=== PATIENT | female | born 1955 | race Caucasian/White ===

== ENCOUNTER 2018-10-16 13:30 | Outpatient (AMBR) | payer MEDICAID, SELFPAY ==
--- NOTE | 2018-10-15 13:19 | PT.OIERPT ---
PT OP Initial Eval Patient Information Visit Reasons: left knee arthroscopy Medical Diagnosis: S83.28 M65.9 M23.92 S83.24 Treatment Dx #1: L knee pain Treatment Dx #2: s/p L knee A/S Start of Care: 10/15/18 Date of Onset: 09/14/18 Initial Assessment Subjective Pt is 63 yr old female s/p L knee A/S about 4 weeks ago. She is ambulating without assistive device and is walking around her mobile [place] park without pain. Only when she climbs stairs she feels pain and she has 5 stairs to get into mobile home. She had been working at [employer] but is off work now. PMH: allergies, HTN, CTS B, hysterectomy, skin CA excision Imaging: MRI in Em[facility], reviewed Pt goal: not sure, it only hurts when I climb stairs Objective L knee AROM: Flexion: 122 deg Extension: -10 deg PROM: WNL SLR: 45 deg flexion limited by LBP Strength: L quads 4-/5 limited by patella compression pain, hamstrings 4-/5 Antalgic gait pattern with decreased stance time on L Gait: lacks knee extension Assessment Pt presentation consistent with post op L knee A/S with decreased ROM into extension, strength and WB tolerance. Pt ambulates with decreased WB on L. Pt has pain at first resistance into knee flexion that limits end-range assessment and PROM. Gait is limited by lack of extension ROM. Pt has good rehab potential with attainable functional improvement. Eval followed by HEP with materials. Short Term and [facility] Goals 1. Independent with HEP 2. Improved knee extension ROM to full 3. Improved quad and hamstring strength to 4+/5 4. Improved ambulatory tolerance to community distances with symmetrical gait pattern. Treatment Plan 1. Manual therapy 2. Therex 3. Modalities as indicated, estim, MHP, ice Frequency and Duration 2x a week for 8 weeks Certification Dates: 10/15/18 to 01/15/19 Office Procedures PT Procedures PT Date of Service: 10/15/18 OP PT Eval Mod Complex 30 minutes: Yes
--- NOTE | 2018-10-16 14:32 | PT.ODAYNRPT ---
PT Outpatient Daily Note Date of Service: October 16, 2018 OP Daily Note Visit Reasons: left knee arthroscopy Outpatient Physical Therapy Treatment Date: 10/16/18 Subjective: Same as time of eval Objective: See F/S for therex MT: PPM into knee extension, STM anterior knee x10' Assessment: Pain limits extension ROM and LBP limits SLR and transitional movements. Plan: Request additional visits in order to continue therapy 2x a week for 8 weeks Length of Time (minutes) of Treatment: 30 Minutes Office Procedures PT Procedures PT Date of Service: 10/15/18 OP PT Eval Mod Complex 30 minutes: Yes PT Procedures PT Date of Service: 10/16/18 Therapeutic Exercise 15 minutes: Yes Manual Vessel Manager 15 minutes: Yes
== END 2018-11-14 23:59 | disposition home or self-care (01) ==
PROVIDERS: PCP Physician Assistant; Referring Provider Physician Assistant; Visit Provider Orthopaedic Surgery
DX: M25.562 Pain in left knee (principal)
CPT/HCPCS: 97110; 97140; 97162

== ENCOUNTER 2020-10-13 10:25 | Outpatient (AMBR) | payer MEDICARE, MEDICAID, SELFPAY ==
--- NOTE | 2020-09-16 10:15 | PTNOTE_ITS ---
PT OP Initial Eval Patient Information Visit Reasons: LUMBAR Medical Diagnosis: M54.16 Treatment Dx #1: LBP Start of Care: 09/16/20 Date of Onset: 4 months ago Initial Assessment Subjective Pt is 65 yr old female presents to therapy ambulating slowly with cane and fwd flexed trunk who reports chronic LBP and worsening of LBP over the past 4 months that has made it more difficult to walk. She lives alone and she needs help with all ADL's because of the R knee that is getting replaced this Monday. She lives in a mobile home and her sister dumps the trash but pt can dress, groom, bathe and eats TV dinner and bologna sandwiches. PLOF: she could walk to the dumpster and back without resting and now she has to rest at the dumpster for about 5 minutes before walking back. PMH: Hysterectomy, allergies, OA R knee, skin cancer x3, L TKA Imaging: MRI of L/S in EMR reveals Grade 1 anterolisthesis, 4 mm, L4 on L5, Moderate disc narrowing L4-L5. Pt goal: to walk further Objective Trunk ArOM: B SB 10% with pain to the R Extension: to neutral with pain around L5-S1 centrally Flexion: 7 from floor with LBP and one hand on table to support balance B rotation: 20% LE strength: B hamstrings: 3/5 Quads 3/5 Hip abd/add 4-/5 TTP: moderate L5-S1, PSIS on R lumbar paraspinal atrophy Assessment Pt presents with very limited trunk ROM and extension sensitivity and overlying myofascial pain around L5-S1 on R side. She has lumbar extensor atrophy and pain with prolonged standing. LE strength is weak. These findings are consistent with MRI that shows anterolisthesis L4 on L5 and disc bulges at L4-5 and L5-S1. Pt requires skilled therapy in order to decrease pain and improve standing tolerance and has poor/fair rehab potential to meet goals. Short Term and [employer] Goals 1. Ind with HEP 2. Improved standing tolerance to 20 minutes with <=4/10 LBP 3. Pt will improve ambulatory distance to the dumpster and back without resting 4. Improved trunk rotation to at least 40% of normal B Treatment Plan Pt has R TKA surgery planned in two days and will be in the hospital and then recovering from that. She will call after sx when she can walk enough to come in for therapy on her back. She isn't sure if MD will refer her for therapy on her knee. 90 day POC since she may need extra time after knee surgery. Pt requires skilled therapy in order to increase strength, decrease pain and address aforementioned impairments. Rx may consist of Therex, Manual therapy, Neuromuscular re- education, Gait training. Modalities as indicated-moist heat packs, ice packs, mechanical traction, estim Frequency and Duration 1-2x a week for 4 weeks Certification Dates: 09/16/20 to 12/17/20 Office Procedures PT Procedures PT Date of Service: 09/16/20 OP PT Eval High Complex 45 minutes: Yes
--- NOTE | 2020-10-07 16:49 | PTNOTE_ITS ---
PT Outpatient Daily Note Date of Service: 10/07/20 OP Daily Note Visit Reasons: LUMBAR Outpatient Physical Therapy Treatment Date: 10/07/20 Subjective: Pt had R TKA about 3 weeks ago and wonders if that will limit ther apy on her back. Objective: See f/S for therex MT: STM L/s paraspinals L4-5, L5-S1 with Graston x10' Mechanical traction x7' at 40 lbs Assessment: Good response to manual therapy and traction to reduce pain with transitional movements such as supine to sit transfers. Plan: Continue per POC Length of Time (minutes) of Treatment: 30 Minutes Office Procedures PT Procedures PT Date of Service: 09/16/20 OP PT Eval High Complex 45 minutes: Yes PT Procedures PT Date of Service: 10/07/20 Therapeutic Exercise 15 minutes: Yes Manual Home Service Technician 15 minutes: Yes
--- NOTE | 2020-10-13 19:12 | PT.ODS1RPT ---
PT OP Progress/Discharge Note Date of Service: 10/13/20 Progress Note/DC Note Progress Note/Discharge Note: DC Note Patient Information Visit Reasons: LUMBAR Treatment Dx #1: LBP Service Continue Service or Discharge: Discharge Discharge Date: 10/13/20 Certification Date Certification Dates: 09/16/20 to 12/17/20 Status Subjective: The LB feels about the same after last visit but the R knee hurts after TKA Objective: Mechanical traction x10' at 40 lbs Objective findings same as evaluation Assessment: Pt has attended the eval and 2 Rx visits and treatment intervention options are limited by R TKA. She hasn't noticed any difference in lumbar ssx and would benefit from therapy on her R knee s/p TKA before trying to rehab her back. She is not making progress with therapy goals. Plan: D/C with HEP. Goals Achieved: Office Procedures PT Procedures PT Date of Service: 10/13/20 Traction Mechanical: Yes Therapeutic Exercise 15 minutes: Yes PT Procedures PT Date of Service: 09/16/20 OP PT Bernard High Complex 45 minutes: Yes PT Procedures PT Date of Service: 10/07/20 Therapeutic Exercise 15 minutes: Yes Manual Merchandise Presentation Associate 15 minutes: Yes
== END 2020-10-14 23:59 | disposition home or self-care (01) ==
PROVIDERS: PCP Physical Medicine & Rehabilitation Pain Medicine; Referring Provider Physical Medicine & Rehabilitation Pain Medicine; Visit Provider Physical Medicine & Rehabilitation Pain Medicine
DX: M54.16 Radiculopathy, lumbar region (principal); M54.5 Low back pain; R26.2 Difficulty in walking, not elsewhere classified
CPT/HCPCS: 97012; 97110; 97140; 97163

== ENCOUNTER 2021-03-03 09:52 | Outpatient (AMBR) | payer MEDICARE, MEDICAID, SELFPAY ==
--- NOTE | 2021-02-16 11:17 | PTNOTE_ITS ---
PT OP Initial Eval Patient Information Visit Reasons: right knee Medical Diagnosis: M17.11 Treatment Dx #1: s/p R TKA Start of Care: 02/16/21 Date of Onset: 09/18/20 Initial Assessment Subjective Pt is 66 yr old female s/p R TKA about 4 months ago presents to therapy ambulating with SPC slowly. She can ambulate limited distances less than one block with cane. It was healing perfectly until I felt a pop with pain and swelling and now everything makes it hurt more. The knee freezes and locks and then it won't hold her weight. PLOF: prior to onset of R knee OA she was independent with community mobility not limited by pain. PMH: HTN, allergies Imaging: in EMR Pt goal: to walk without pain and not fall Objective R knee ArOM: Flexion: 61 deg Extension: -34 deg Strength: 3-/5 Gait: antalgic TTP: moderate over lateral femoral condyle protrusion. Varus/valgus stress test: pain Assessment Pt presents with very limited R knee ROM, capsular tightness, antalgic gait, high tissue irritability and a protrusion around lateral femoral condyle. Pt requires skilled therapy to improve knee ROM and has poor/fair rehab potential, potentially limited by protrusion, knee instability and pain. Short Term and Integrated Logistics Support Manager Goals 1. Ind with HEP 2. Improved knee ROM to at least -10 deg extension to 90 deg flexion 3. Improved gait pattern to symmetrical for at least 1 block. Treatment Plan 90 day POC in order to complete visits. Pt requires skilled therapy in order to increase strength, decrease pain and address aforementioned impairments. Rx may consist of Therex, Manual therapy, Neuromuscular re-education, Gait training. Modalities as indicated-moist heat packs, ice packs, mechanical traction, estim Frequency and Duration 2x a week for 6 weeks Certification Dates: 02/16/21 to 05/17/21 Office Procedures PT Treatments PT Date of Service: 02/16/21 OP PT Eval Mod Complex 30 minutes: Yes
--- NOTE | 2021-02-18 09:09 | PTNOTE_ITS ---
PT Outpatient Daily Note Date of Service: 02/18/2021 OP Daily Note Visit Reasons: right knee Outpatient Physical Therapy Treatment Date: 02/18/21 Subjective: Pt reports she had a rough night and reports pain level 12/10 today. Objective: See flow chart for therex. MT: STM w/ graston R knee x 10mins. Assessment: Pt presents with slow antalgic gait using SPC to therapy prior and end of session. Pt presents a protrustion and numbness to lateral R knee. Pt had good response to HMP. Pt tolerated quad sets fair w/ complaints of mod pain. Cued her to push down with light pressure and pain remained. Pt has very limited ROM to knee in flexion and extension. Plan: Cont POC per PT. Length of Time (minutes) of Treatment: 30 Minutes Office Procedures PT Treatments PT Date of Service: 02/16/21 OP PT Eval Mod Complex 30 minutes: Yes PT Treatments PT Date of Service: 02/18/21 Therapeutic Exercise 15 minutes: Yes Manual President Celebrity Acquistion 15 minutes: Yes
--- NOTE | 2021-02-23 14:16 | PTNOTE_ITS ---
PT Outpatient Daily Note Date of Service: 02/23/21 OP Daily Note Visit Reasons: right knee Outpatient Physical Therapy Treatment Date: 02/23/21 Subjective: Continued knee pain and it feels like it moves or shifts. Objective: See F/S for therex MT: StM anterior knee with Graston with knee PPM into flexion 15 sec holds x10' total Assessment: The knee shifts from varus to valgus with little effort with knee extended consistent with instability of prosthesis. Pain limits ROM and WB tolerance on that side. PT recommends further workup to assess dynamic instability of prosthesis. Plan: Continue per POC Office Procedures PT Treatments PT Date of Service: 02/16/21 OP PT Eval Mod Complex 30 minutes: Yes PT Treatments PT Date of Service: 02/18/21 Therapeutic Exercise 15 minutes: Yes Manual Head Of Commission Department 15 minutes: Yes PT Treatments PT Date of Service: 02/23/21 Therapeutic Exercise 15 minutes: Yes Manual Head Of Commission Department 15 minutes: Yes
--- NOTE | 2021-03-03 09:44 | PT.ODS1RPT ---
PT OP Progress/Discharge Note Date of Service: 03/03/21 Progress Note/DC Note Progress Note/Discharge Note: DC Note Patient Information Visit Reasons: right knee Service Continue Service or Discharge: Discharge Discharge Date: 03/03/21 Status Subjective: Continued high pain level in R knee that makes it difficult to walk and move the knee and it feels like it shifts . Pt has high pain level and any movement including therapy increases her pain. She didn't want to do exercises today beside the hot pack and the extension stretching. Objective: Same as time of evaluation Flexion: 61 deg Extension: -34 deg Strength: 3-/5 Varus stress: positive Assessment: Pt has attended the eval and 3 Rx sessions with limited progress due to continued high tissue irritability that limits R knee ROM and function with gait. Pt has protrusion/effusion of the lateral knee that may be from ligamentous dysfunction since she has positive varus gapping and feels like the knee is shifting with gait. 15 minute Rx today limited by her not wanting to do therex. Plan: Pt is discharged to provider for further workup Office Procedures PT Treatments PT Date of Service: 02/16/21 OP PT Tanyaal Mod Complex 30 minutes: Yes PT Treatments PT Date of Service: 02/18/21 Therapeutic Exercise 15 minutes: Yes Manual Marine Electronics Repairer 15 minutes: Yes PT Treatments PT Date of Service: 02/23/21 Therapeutic Exercise 15 minutes: Yes Manual Marine Electronics Repairer 15 minutes: Yes PT Treatments PT Date of Service: 03/03/21 Therapeutic Exercise 15 minutes: Yes
== END 2021-03-16 23:59 | disposition home or self-care (01) ==
PROVIDERS: Visit Provider Orthopaedic Surgery
DX: Z47.1 Aftercare following joint replacement surgery (principal); Z96.651 Presence of right artificial knee joint; M17.11 Unilateral primary osteoarthritis, right knee; M25.561 Pain in right knee; R26.89 Other abnormalities of gait and mobility; M23.51 Chronic instability of knee, right knee; I10 Essential (primary) hypertension
CPT/HCPCS: 97110; 97140; 97162

== ENCOUNTER → 2024-05-13 | Outpatient (CLI) | payer MEDICARE, MEDICAID, SELFPAY ==
[2024-05-13 10:03] LABS: Basophils # (Auto) 0.1 Thou/mm3 (0.0-0.2); Basophils % (Auto) 1 % (0-2.5); Eosinophils % (Auto) 13 % (0-10); Hemoglobin 12.1 g/dL (12.0-16.0); Immature Granulocytes % (Auto) 0 % (0-0); Immature Granulocytes Auto 0.02 Thou/mm3 (0.00-0.00); Lymphocytes # (Auto) 0.7 Thou/mm3 (1.0-4.8); Lymphocytes % (Auto) 9 % (10-50); Mean Corpuscular HGB Conc 33.6 g/dl (31.0-37.0); Mean Corpuscular Hemoglobin 33.8 pg (25.0-35.0); Mean Corpuscular Volume 101 fL (80-100); Monocytes # (Auto) 0.5 Thou/mm3 (0.0-0.8); Monocytes % (Auto) 6 % (0-12); Neutrophils # (Auto) 5.4 Thou/mm3 (1.8-7.7); Neutrophils % (Auto) 71 % (37-80); Nucleated Red Blood Cell % 0 /100 WBC (0); Platelet Count 318 Thou/mm3 (140-440); RDW Standard Deviation 44.7 fL (36.4-46.3); Red Blood Count 3.58 Miln/mm3 (4.00-5.20); White Blood Count 7.6 Thou/mm3 (3.6-11.0)
[2024-05-13 10:21] LABS: Alanine Aminotransferase 17 U/L (10-49); Albumin, Serum 4.2 gm/dL (3.4-4.8); Albumin/Globulin Ratio 1.9 (1.2-2.2); Alkaline Phosphatase 26 U/L (46-116); Anion Gap 9 (7-16); Aspartate Amino Transferase 14 U/L (0-34); BUN/Creatinine Ratio 11 Ratio (12-20); Bilirubin,Total 0.4 mg/dL (0.3-1.2); Blood Urea Nitrogen 8 mg/dL (9-23); Carbon Dioxide 24.6 mMol/L (20.0-31.0); Cardiac Risk Estimate 1.6 RATIO (3.7-5.6); Chloride 104 mMol/L (98-107); Cholesterol 174 mg/dL (132-200); Creatinine (Component) 0.7 mg/dL (0.6-1.3); Globulin 2.2 gm/dL (2.3-3.5); Glucose 103 mg/dL (74-106); HDL Cholesterol 110 mg/dL (40-60); LDL Cholesterol,Calculated 44 mg/dL (0-130); Osmolality,Calculated 273 (275-295); Potassium 4.2 mMol/L (3.4-5.1); Sodium 138 mMol/L (136-145); Total Protein 6.4 gm/dL (5.7-8.2); Triglycerides 98 mg/dL (30-150); eGFR > 60 See Note
[2024-05-13 10:22] LABS: D-Dimer < 250 ng/mL (<600)
[2024-05-13 10:27] LABS: INR 0.9 (0.9-1.3); Partial Thromboplastin Time 27.2 Seconds (22.0-36.0); Prothrombin Time 10.2 Seconds (9.0-12.2)
[2024-05-13 13:20] LABS: Ferritin 78 ng/mL (7.3-270.7)
== END | disposition home or self-care (01) ==
LOC: COPL 09:06
PROVIDERS: PCP Nurse Practitioner Family; Referring Provider Nurse Practitioner Family; Visit Provider Nurse Practitioner Family
DX: D64.9 Anemia, unspecified (principal); R23.3 Spontaneous ecchymoses; E78.2 Mixed hyperlipidemia
CPT/HCPCS: 36415; 80053; 80061; 82728; 85025; 85379; 85610; 85730; 86900; 86901

== ENCOUNTER → 2024-05-28 | Outpatient (CLI) | payer MEDICARE, MEDICAID, SELFPAY ==
--- NOTE | 2024-05-28 09:30 | XR_ITS ---
Examination: Screening digital mammography, bilateral Computer aided detection 3-D breast Tomosynthesis, bilateral Date and time of exam: May 28, 2024 0934 hours Compared to mammograms dating to 01/05/2022 Indication: Screening Technique: Nonmagnified MLO, CC views of the breasts to been obtained, reconstructed from 3-D Tomosynthesis images. R2 computer aided detection program utilized for evaluation of suspicious masses and/or abnormal calcifications. 3-D Tomosynthesis images obtained. Findings: The breasts are heterogeneously dense, which may obscure small masses Grouped microcalcifications 12:00 position left breast 18 mm focal asymmetry left breast nipple level 26 mm on the nipple on the MLO view Impression: BI-RADS Category 0: Incomplete: Need additional imaging evaluation Grouped microcalcifications 12:00 position left breast recommend magnification spot compression views of these calcifications Nipple level MLO view focal asymmetry left breast, recommend spot compression MLO view spot tomographic impression outer left breast CC view, left breast sonography to complete workup
== END | disposition home or self-care (01) ==
PROVIDERS: Referring Provider Obstetrics & Gynecology; Visit Provider Obstetrics & Gynecology
DX: Z12.31 Encounter for screening mammogram for malignant neoplasm of breast (principal); R92.0 Mammographic microcalcification found on diagnostic imaging of breast; N64.89 Other specified disorders of breast
CPT/HCPCS: 77063; 77067

== ENCOUNTER → 2024-06-26 | Outpatient (CLI) | payer MEDICARE, SELFPAY ==
--- NOTE | 2024-06-26 09:00 | XR_ITS ---
Examination: Breast ultrasound, unilateral, left Indications: Left breast pain one year, focal asymmetry left breast on left breast microcalcifications left breast on mammogram May 2024 Date and time of exam: 2024 0905 hrs. Technique: Real-time cervantes scale ultrasonographic imaging performed left breast including all 4 quadrants as well as nipple retroareolar and axillary region. Findings: No cystic or solid mass Impression: BI-RADS Category 1: Negative study
--- NOTE | 2024-06-26 09:30 | XR_ITS ---
Examination: Diagnostic digital mammography, unilateral, left Computer aided detection 3-D breast Tomosynthesis, unilateral Date and time of exam: 06/26/2024 minutes 50 2:00 AM Comparisons: March 2022, May 2024 Indications: Further evaluation of calcifications and asymmetry seen on screening exam. Technique: Nonmagnified MLO, CC views of the left breast have been obtained, reconstructed from 3-D Tomosynthesis images. R2 computer aided detection program utilized for evaluation of suspicious masses and/or abnormal calcifications. 3-D Tomosynthesis images obtained. Technologist: Findings: The breasts are heterogeneously dense, which may obscure small masses. The previously described asymmetry does not persist on spot compression views and represents superimposition of normal fibroglandular tissue. Scattered punctate benign-appearing calcifications. Impression: BI-RADS category 2: Benign findings Recommend 1 year follow-up mammogram
== END | disposition home or self-care (01) ==
PROVIDERS: PCP Obstetrics & Gynecology; Referring Provider Obstetrics & Gynecology; Visit Provider Obstetrics & Gynecology
DX: R92.322 Mammographic fibroglandular density, left breast (principal)
CPT/HCPCS: 76641; 77061; 77065; G0279